=== PATIENT | male | born 1970 | race Caucasian/White ===

== ENCOUNTER 2024-06-28 09:44 | Day surgery (SDC) | payer BC, SELFPAY ==
[2024-06-26 14:28] VITALS: BMI 31.6
[2024-06-28 10:04] VITALS: BP 147/98; PULSE 67; RESP 18; TEMP 36.3; O2SAT 98
[2024-06-28 10:38] VITALS: O2SAT 98
--- NOTE | 2024-06-28 10:44 | EXP.ANES.CKL ---
[facility] Disclaimer: The information contained in this section may have been updated after the patient was seen, as this information can be updated by other users. Medical History Hypertension Surgical History H/O vasectomy Family History (Updated 06/28/24 @ 10:04 by Darryn Almanzar RN) Other Family history of heart disease Social History Smoking Status: Never smoker alcohol intake: never substance use type: denies use current occupational status: employed Travel in the last 8 weeks: None [facility] Anesthesia Checklist Patient Identification Patient Identification: Arm Band Structural Data Admitted From: Home Planned Operative Procedure/s: Colonoscopy Consent for Planned Operative Procedure(s) Verified: Yes Verified Documents: Surgical Consent and History and Physical NPO Status Verified Time NPO: 06:30 (finished prep) Additional verifications Anesthesia Reactions: No Airway Assessment Mallampati Score:: Class II C-Spine Mobility Assessed: Yes TMJ Mobility Assessed: Yes Dentition: Good Dentition Neurological Assessment Level of Consciousness: Awake, Alert and Appropriate Anesthesia Plan Anesthesia Risk discussed: Yes Anesthesia Plan: Verified ASA Class: II Anesthesia Type: MAC
--- NOTE | 2024-06-28 10:47 | P.PCN_ITS ---
[facility] Procedure Note Date: 06/28/24 Time: 11:02 Procedure Note:: Colonoscopy Procedure Report: Colonoscopy with cold snare polypectomy Endoscopist: Rodrigue Grande II, MD Referring physician: Octaviano Gonzalez MD, [id number], [place] [address] Date of Procedure: June 28, 2024 Equipment: Olympus 190 variable stiffness pediatric colonoscope Sedation: MAC sedation Indication: Mr. Perdomo is a 54-year-old gentleman who is here for follow-up surveillance colonoscopy. He did have a colonoscopy in 2019 and had 2 benign polyps (tubular adenomas x 2) removed. He reports no abdominal pain, weight loss, change in his bowel habits or rectal bleeding. He does state that his maternal grandmother had colon cancer. Procedure: Prior to the procedure, a history and physical exam was performed, and patient's medications and allergies were reviewed. The risks, benefits and alternatives of the sedation and procedure were discussed with the patient. All questions were answered and informed consent was obtained. The patient was brought to the procedure room. Patient identification and proposed procedure were verified by the physician and the nurse. The patient was placed in a left lateral decubitus position and the scope was passed under direct vision. Throughout the procedure, the patient's blood pressure, pulse, and oxygen saturations were monitored continuously. The colonoscopy was accomplished without difficulty. The patient tolerated the procedure well. Findings: On digital rectal examination there was normal rectal tone. There were no external hemorrhoids. The prostate was 2+, smooth, soft, symmetric without nodules. The colonoscope was introduced through the anal canal to the rectum and advanced to the cecum. The ileocecal valve and appendiceal orifice were identified. The scope was advanced a short distance into the ileum which appea red grossly normal. The scope was then withdrawn into the colon. There was a single 5 mm polyp in the transverse colon removed via cold snare polypectomy. The remaining cecum, ascending and transverse colon and mucosa were grossly normal. There were scattered diverticuli throughout the descending and sigmoid colon (LEFT colon). The rectum itself was normal. Upon retroflexion within the rectum there were grade 1-2 internal hemorrhoids. The preparation was excellent throughout with Alvin Preparation Score of 9. The cecal time was 12 minutes. Impression: 1. Diminutive transverse colon polyp (5 mm) 2. Left-sided diverticulosis 3. Grade 1-2 internal hemorrhoids Plan: I will follow-up the polyp histology and recommend repeat surveillance colonoscopy in 7 years based upon the pathology. I would encourage psyllium bulking fiber supplementation on a maintenance basis.
--- NOTE | 2024-06-28 10:48 | P.HP_ITS ---
History of Present Illness *Admission Date: 06/28/24 *Reason for visit:: Personal history of adenomatous colon polyps *History of present illness: Mr. Perdomo is a 54-year-old gentleman who is here for follow-up surveillance colonoscopy. He did have a colonoscopy in 2019 and had 2 benign polyps (tubular adenomas x 2) removed.. The examination is deemed medically necessary for surveillance colonoscopy. The patient has been seen, interviewed and examined prior to the procedure by both myself and the anesthesia provider. [facility] Disclaimer: The information contained in this section may have been updated after the patient was seen, as this information can be updated by other users. Medical History (Updated 06/28/24 @ 10:49 by Rodrigue Grande II, MD) Hypertension Surgical History H/O vasectomy Family History (Updated 06/28/24 @ 10:04 by Darryn Almanzar RN) Other Family history of heart disease Social History (Updated 06/28/24 @ 10:45 by Houston Quiñones CRNA) Smoking Status: Never smoker alcohol intake: never substance use type: denies use current occupational status: employed Travel in the last 8 weeks: None Have you lived/traveled outside [place] in past 30 days?: No Contact w/someone who lives/traveled outside US past 30 days?: No Exposure to someone with infectious disease in past 14 days?: No Do you have a fever (greater than 100.4 F or 38 C)?: No Have you tested positive for COVID-19: No Exposed to someone with COVID-19 in past 14 days?: No Do you have a sore throat?: No Do you have a cough?: No Do you have any weakness?: No Are you experiencing any nausea/vomitting?: No Do you have any diarrhea?: No Are you experiencing any unusual bleeding?: No Do you have any muscle aches/pain?: No Do you have any abdominal pain?: No Are you experiencing loss of taste or smell?: No Review of Systems Review of Systems Review of systems (narrative): Negative *Cardiovascular Comments: Negative *Gastrointestinal Comments: Negative *Genitourinary Comments: Negative *Musculoskeletal Comments: Negative *Neurologic Comments: Negative Meds Home Medications and Allergies Home Medications ?Medication ?Instructions ?Recorded ?Confirmed ?Type losartan 100 mg tablet 100 mg PO DAILY 06/26/24 06/26/24 History New Prescriptions to Start Prescriptions: Allergies Allergy/AdvReac Type Severity Reaction Status Date / Time Cephalosporins AdvReac Hives Verified 06/28/24 10:03 Exam Data for Last 24 hours Vital signs and Labs for Last 24 Hours: Temp Pulse Resp BP Pulse Ox O2 Del Method O2 Flow Rate 97.4 F L 67 18 147/98 H 98 Nasal Cannula 5 06/28/24 10:04 06/28/24 10:04 06/28/24 10:04 06/28/24 10:04 06/28/24 10:04 06/28/24 10:38 06/28/24 10:38 I & O for Last 24 hours: Intake & Output 06/25/24 06/26/24 06/27/24 06/28/24 23:59 23:59 23:59 23:59 Weight 240 lb *Routine HEENT Exam Head: Present normocephalic Eye: Present EOMI and PERRL ENT: Present mucous membranes moist *Routine Neck Exam Neck: Present supple *Routine Respiratory Exam Respiratory: Present CTA bilaterally *Routine Cardiovascular Exam Cardiovascular: Present RRR *Routine Abdominal Exam Abdominal: Present soft and normoactive bowel sounds; Absent tenderness *Routine Rectal Exam Rectal:: deferred *Routine Genitalia Exam Genitalia:: deferred *Routine Extremities Exam Extremities: Absent cyanosis, clubbing or edema *Routine Skin Exam Skin: Present warm; Absent rash *Routine Neurological Exam Neurological: Present alert and oriented X3 Assessment and Plan *Assessment and plan (1) Personal history of adenomatous and serrated colon polyps: Status: Acute Category: Medical Code(s): Z86.0101 - Personal history of adenomatous and serrated colon polyps Plan A/P: 1. Personal history of adenomatous colon polyps is the preprocedural diagnosis. The patient will be anesthetized/sedated using MAC sedation. The patient has been seen and examined. Cardiac and lung assessment prior to the examination is stable. Proceed with planned surveillance colonoscopy
[2024-06-28 11:07] VITALS: BP 90/52; PULSE 70; RESP 17; TEMP 36.6; O2SAT 99
[2024-06-28 11:17] VITALS: BP 97/44; PULSE 63; RESP 17; O2SAT 99
[2024-06-28 11:27] VITALS: BP 133/73; PULSE 63; RESP 18; O2SAT 98
[2024-06-28 11:37] VITALS: BP 151/91; PULSE 59; RESP 18; O2SAT 100
== END 2024-06-28 11:50 | disposition home or self-care (01) ==
PROVIDERS: PCP Internal Medicine; Visit Provider Internal Medicine Gastroenterology
PROC: 0DJD8ZZ Inspection of Lower Intestinal Tract, Via Natural or Artificial Opening Endoscopic (ICD-10-PCS; CPT 45378; principal; 2024-06-28 11:00)
DX: K63.5 Polyp of colon (principal); K57.30 Diverticulosis of large intestine without perforation or abscess without bleeding; K64.8 Other hemorrhoids; Z86.0101 Personal history of adenomatous and serrated colon polyps
CPT/HCPCS: 45385